=== PATIENT | male | born 1955 | race Caucasian/White ===

== ENCOUNTER 2018-07-21 13:45 | Emergency (ER) | payer BC ==
[2018-07-21 13:56] VITALS: BP 161/91; PULSE 85; TEMP 97.8; BMI 35.4
--- NOTE | 2018-07-21 14:43 | PDOC ---
History of Present Illness - General History Source: Patient Exam Limitations: No Limitations - History of Present Illness Initial Comments: 62 yo M history HTN, HL presents with multiple complaints. He states he has been having L flank/low back pain for the past 2 days, intermittent, colicky. When he gets the pain he gets belching, nausea, and has vomited more than once. Denies dysuria, diarrhea, abd pain. He states he has also had chest pressure with these symptoms, as well as L arm pain with L hand numbness. He states he has had problems with his left shoulder in the past, but never with numbness, just pain. <Joyce Esquivel - Last Filed: 07/21/18 19:04> <Suzette Mac - Last Filed: 07/21/18 19:14> - General Chief Complaint: Pain, Acute Stated Complaint: LEFT ARM TINGLING, LEFT BACK PAIN Time Seen by Provider: 07/21/18 13:59 Past History - Past Medical History Anemia: No Asthma: No Cancer: No Cardiac Disorders: Yes CVA: No COPD: No CHF: No Dementia: No Diabetes: No GI Disorders: Yes (GERD, COLON POLYPS, HEMORRHOIDS) Disorders: No HTN: Yes Hypercholesterolemia: Yes Liver Disease: No Seizures: No Thyroid Disease: No - Surgical History Abdominal Surgery: No Appendectomy: No Cardiac Surgery: No Cholecystectomy: Yes Lung Surgery: No Neurologic Surgery: No Orthopedic Surgery: Yes (ROTATOR CUFF, KNEE SX) - Immunization History Immunization Up to Date: Yes - Suicide/Smoking/Psychosocial Hx Smoking History: Current every day smoker Have you smoked in the past 12 months: Yes Number of Cigarettes Smoked Daily: 15 If you are a former smoker, when did you quit?: 2012 Information on smoking cessation initiated: Yes Hx Alcohol Use: (occasional) Drug/Substance Use Hx: No Substance Use Type: None Hx Substance Use Treatment: No <Joyce Esquivel - Last Filed: 07/21/18 19:04> <Suzette Mac - Last Filed: 07/21/18 19:14> - Past Medical History Allergies/Adverse Reactions: Allergies Allergy/AdvReac Type Severity Reaction Status Date / Time No Known Allergies Allergy Verified 07/21/18 13:48 Home Medications: Ambulatory Orders Amlodipine Besylate [Norvasc -] 10 mg PO DAILY 01/27/14 Atorvastatin Ca [Lipitor] 10 mg PO HS 01/27/14 Pnv/Iron,Carb/Om-3/FA/Fat 1 [Multivitamin with Minerals Cap] 1 each PO DAILY Losartan Potassium 360 mg PO DAILY 07/21/18 Tramadol HCl 50 mg PO ASDIR 07/21/18 Review of Systems - Review of Systems Able to Perform ROS?: Yes Comments:: GENERAL/CONSTITUTIONAL: No fever or chills. No weakness. HEAD, EYES, EARS, NOSE AND THROAT: No change in vision. No ear pain or discharge. No sore throat. CARDIOVASCULAR: No shortness of breath. +Chest pressure. RESPIRATORY: No cough, wheezing, or hemoptysis. GASTROINTESTINAL: No nausea, vomiting, diarrhea or constipation. GENITOURINARY: No dysuria, frequency, or change in urination. MUSCULOSKELETAL: L arm pain and numbness to the hand. No neck pain. +L low back pain. SKIN: No rash NEUROLOGIC: No headache, vertigo, loss of consciousness, or change in strength. ENDOCRINE: No increased thirst. No abnormal weight change. HEMATOLOGIC/LYMPHATIC: No anemia, easy bleeding, or history of blood clots. ALLERGIC/IMMUNOLOGIC: No hives or skin allergy. <Joyce Esquivel - Last Filed: 07/21/18 19:04> *Physical Exam - Vital Signs Last Vital Signs Temp Pulse Resp BP Pulse Ox 97.8 F 85 18 161/91 99 07/21/18 13:45 07/21/18 13:45 07/21/18 13:45 07/21/18 13:45 07/21/18 13:45 - Physical Exam Comments: GENERAL: Awake, alert, and fully oriented, in no acute distress. Obese. HEAD: No signs of trauma EYES: PERRLA, EOMI, sclera anicteric, conjunctiva clear ENT: Auricles normal inspection, hearing grossly normal, nares patent, oropharynx clear without exudates. Moist mucosa NECK: Normal ROM, supple, no lymphadenopathy, JVD, or masses LUNGS: Breath sounds equal, clear to auscultation bilaterally. No wheezes, and no crackles HEART: Regular rate and rhythm, normal S1 and S2, no murmurs, rubs or gallops ABDOMEN: Soft, nontender, normoactive bowel sounds. No guarding, no rebound. No masses. No CVAT. EXTREMITIES: Normal range of motion, no edema. No clubbing or cyanosis. No cords, erythema, or tenderness NEUROLOGICAL: Cranial nerves II through XII grossly intact. Normal speech, normal gait SKIN: Warm, Dry, normal turgor, no rashes or lesions noted. <Joyce Esquivel - Last Filed: 07/21/18 19:04> - Vital Signs Last Vital Signs Temp Pulse Resp BP Pulse Ox 97.8 F 85 18 161/91 99 07/21/18 13:45 07/21/18 13:45 07/21/18 13:45 07/21/18 13:45 07/21/18 13:45 <Suzette Mac - Last Filed: 07/21/18 19:14> Moderate Sedation - Procedure Monitoring Vital Signs: Procedure Monitoring Vital Signs Temperature 97.8 F 07/21/18 13:45 Pulse Rate 85 07/21/18 13:45 Respiratory Rate 18 07/21/18 13:45 Blood Pressure 161/91 07/21/18 13:45 O2 Sat by Pulse Oximetry (%) 99 07/21/18 13:45 <Joyce Esquivel - Last Filed: 07/21/18 19:04> - Procedure Monitoring Vital Signs: Procedure Monitoring Vital Signs Temperature 97.8 F 07/21/18 13:45 Pulse Rate 85 07/21/18 13:45 Respiratory Rate 18 07/21/18 13:45 Blood Pressure 161/91 07/21/18 13:45 O2 Sat by Pulse Oximetry (%) 99 07/21/18 13:45 <Suzette Mac - Last Filed: 07/21/18 19:14> Heart Score/ECG Review - History History: Moderately suspicious - Electrocardiogram EKG: Normal - Age Age: 45-65 - Risk Factors Risk Factors Heart Score: Yes Hx Hypercholesterolemia, Yes Hx Hypertension, Yes Hx Obesity Based on the list above the patient has:: >/=3 risk factors or Hx atherosclerotic disease <Joyce Esquivel - Last Filed: 07/21/18 19:04> ED Treatment Course - LABORATORY CBC & Chemistry Diagram: 07/21/18 15:04 07/21/18 15:04 <Joyce Esquivel - Last Filed: 07/21/18 19:04> - LABORATORY CBC & Chemistry Diagram: 07/21/18 15:04 07/21/18 15:04 - ADDITIONAL ORDERS Additional order review: Laboratory Results 07/21/18 07/21/18 07/21/18 15:04 15:04 14:46 Sodium 137 Potassium 3.6 Chloride 103 Carbon Dioxide 25 Anion Gap 9 BUN 21 H Creatinine 0.9 Creat Clearance w eGFR > 60 Random Glucose 120 H Calcium 9.1 Total Bilirubin 0.6 AST 28 ALT 31 Alkaline Phosphatase 85 Creatine Kinase 92 Troponin I < 0.03 Total Protein 6.4 Albumin 4.0 Lipase 160 Urine Color Yellow Urine Appearance Clear Urine pH 7.0 Ur Specific [place] 1.015 Urine Protein Trace Urine Glucose (UA) Negative Urine Ketones Negative Urine Blood Trace-intact H Urine Nitrite Negative Urine Bilirubin Negative Urine Urobilinogen 0.2 Ur Leukocyte Esterase Negative Urine RBC 0-2 Urine WBC None seen 07/21/18 15:04 RBC 5.62 H MCV 84.0 MCHC 33.0 RDW 13.6 MPV 8.2 Neutrophils % 68.1 Lymphocytes % 17.6 Monocytes % 9.8 Eosinophils % 3.6 Basophils % 0.9 - RADIOLOGY Radiograph Interpretation: CHEST X-RAY Chest pressure A single AP view the chest reveals clear lungs, prominent knob, normal avery and normal heart. The angles are sharp and the soft tissues are intact. An acute chest process is not seen. Reported By: Tae Julien MD 07/21/18 16:49 07/21/18 19:12 CT spiral renal stone Impression: CT findings consistent with 0.3 cm stone in the distal left ureter at the level of the left ureterovesical junction on the ureter side with mild left hydroureter and no evidence of hydronephrosis in the left kidney. Reported By: Almas Francisco MD 07/21/18 17:06 - Medications Given in the ED: ED Medications Discontinued Medications Generic Name Dose Route Start Last Admin Trade Name Freq PRN Reason Stop Dose Admin Diazepam 5 mg 07/21/18 15:08 07/21/18 15:12 Valium - PO 07/21/18 15:09 5 mg ONCE ONE Administration Sodium Chloride 1,000 mls @ 1,000 mls/hr 07/21/18 17:19 07/21/18 17:32 Normal Saline - IV 07/21/18 18:18 1,000 mls/hr ASDIR STA Administration <Suzette Mac - Last Filed: 07/21/18 19:14> Medical Decision Making - Medical Decision Making 07/21/18 14:42 Pt presents with multiple complaints. DDx includes ACS (chest pressure, nausea, arm numbness), kidney stone (flank pain with nausea, belching may be causing the chest pressure), dissection (unlikely based on the location of the pain), MSK pain. Will obtain labs, EKG, CXR, and spiral CT. 07/21/18 17:25 Case d/w Dr. Dill in ED. If repeat trop is negative, will DC home. He has an appointment with Mr. Espitia tomorrow. <Joyce Esquivel - Last Filed: 07/21/18 19:04> *DC/Admit/Observation/Transfer - Discharge Dispostion Decision to Admit order: No <Joyce Esquivel - Last Filed: 07/21/18 19:04> - Attestations Scribe Attestion: 07/21/18 19:13 Documentation prepared by KATHRINE Salazar, acting as medical office receptionist for Joyce Esquivel MD. <Suzette Mac - Last Filed: 07/21/18 19:14> Diagnosis at time of Disposition: Kidney stone, Chest pain - Discharge Dispostion Disposition: HOME Condition at time of disposition: Stable - Referrals Referrals: Chandan Dill MD [Primary Care Provider] - Keshav Gabriel MD [Staff Physician] - - Patient Instructions Printed Discharge Instructions: DI for Kidney Stones, DI for Chest Pain - Post Discharge Activity
[2018-07-21 14:54] LABS: URINE APPEARANCE Clear; URINE BILIRUBIN Negative (NEGATIVE); URINE COLOR Yellow; URINE GLUCOSE (UA) Negative (NEGATIVE); URINE KETONE Negative (NEGATIVE); URINE LEUK ESTERASE Negative (NEGATIVE); URINE NITRITE Negative (NEGATIVE); URINE PROTEIN Trace (NEGATIVE); URINE UROBILINOGEN 0.2 (0.2-1.0)
[2018-07-21] MEDS ORDERED: diazePAM 5 MG TABLET PO ONE (15:08)
[2018-07-21] MEDS ORDERED: diazePAM 5 MG TABLET ONE (15:10)
[2018-07-21 15:15] LABS: BASO % 0.9 % (0-2.0); EOS % 3.6 % (0-4.5); HEMATOCRIT 47.2 % (35.4-49); HEMOGLOBIN 15.6 GM/dl (11.7-16.9); LYMPH % 17.6 % (8-40); MCH 27.7 pg (25.7-33.7); MEAN PLT VOLUME 8.2 fl (7.5-11.1); MONO % 9.8 % (3.8-10.2); NEUT % 68.1 % (42.8-82.8); PLATELET COUNT 211 K/MM3 (134-434); RBC 5.62 M/mm3 (4.00-5.60); RDW 13.6 % (11.9-15.9); WHITE BLOOD COUNT 8.1 K/mm3 (4.0-10.8)
[2018-07-21 15:24] LABS: URINE RBC 0-2 /hpf (0-3); URINE WBC NONE SEEN (0-2)
[2018-07-21 15:35] LABS: ALK PHOS 85 U/L (32-92); ANION GAP 9 MMOL/L (8-16); BILIRUBIN,TOTAL 0.6 mg/dl (0.2-1.0); BLOOD UREA NITROGEN 21 mg/dl (7-18); CALCIUM 9.1 mg/dl (8.4-10.2); CHLORIDE 103 mmol/L (98-107); CO2 25 mmol/L (22-28); CREATININE 0.9 mg/dl (0.6-1.3); GLUCOSE,RANDOM 120 mg/dl (74-106); POTASSIUM 3.6 mmol/L (3.5-5.1); SGOT/AST 28 U/L (10-42); SGPT/ALT 31 U/L (10-40); SODIUM 137 mmol/L (136-145); TOT PROT 6.4 g/dl (6.4-8.3)
[2018-07-21] MEDS ORDERED: SODIUM CHLORIDE 1,000 ML IV STA (17:19)
[2018-07-21 17:58] LABS: LIPASE 160 U/L (73-393)
--- NOTE | 2018-07-22 13:03 | EKG ---
Test Reason : Blood Pressure : / mmHG Vent. Rate : 085 BPM Atrial Rate : 085 BPM P-R Int : 158 ms QRS Dur : 084 ms QT Int : 350 ms P-R-T Axes : 040 -22 046 degrees QTc Int : 416 ms NORMAL SINUS RHYTHM POSSIBLE LEFT ATRIAL ENLARGEMENT INFERIOR INFARCT , AGE UNDETERMINED ABNORMAL ECG WHEN COMPARED WITH ECG OF 21-JUN-2009 09:24, VENT. RATE HAS INCREASED BY 39 BPM INFERIOR INFARCT IS NOW PRESENT QT HAS LENGTHENED Confirmed by Shaun Liu ([id number]) on 07/22/2018 1:02:54 PM Referred By: SHIELA ZAMORA Confirmed By:Shaun Liu
== END 2018-07-21 19:27 | disposition home or self-care (01) ==
LOC: FER 13:45
PROC: 3E0337Z Introduction of Electrolytic and Water Balance Substance into Peripheral Vein, Percutaneous Approach (ICD-10-PCS; principal; 2018-07-21)
DX: N20.0 Calculus of kidney (principal); R07.9 Chest pain, unspecified
CPT/HCPCS: 36415; 71045-TC-FY; 74176; 80053; 81003; 81015; 82550; 83690; 84484; 85025; 93005; 99284-25; J7030